=== PATIENT | female | born 1970 | race Caucasian/White ===

== ENCOUNTER → 2017-11-05 | Outpatient (CLI) | payer OTHER | LOC: LAB SHORT 08:34 → LAB 08:34 | PROVIDERS: Student in an Organized Health Care Education/Training Program | DX: Z01.419 Encounter for gynecological examination (general) (routine) without abnormal findings (principal) | CPT/HCPCS: G0145 ==

== ENCOUNTER 2018-07-07 06:05 | Day surgery (SDC) | payer OTHER ==
[~2018-07-07] VITALS: Ht 162.6 cm; Wt 63.8 kg
[~2018-07-07 06:05] MED LIST: DULO30 PO
--- NOTE | 2018-07-07 06:26 | NUR ---
History, Chart, Medications and Allergies reviewed before start of procedure. Lungs clear T/O to Auscultation.
--- NOTE | 2018-07-07 08:44 | NUR ---
07/07/18 0844 Armida Salamanca 0834 REPORT FROM MALGORZATA GRIMM, ASSUMED CARE OF PT.
--- NOTE | 2018-07-07 10:11 | NUR ---
PT ARRIVED TO UNIT AT APROX 1000 FROM PACU. STERI STRIPS X'S 3 W/SCANT SS DRAINAGE PRESENT. DELORIS PAD IN PLACE, DIME SIZE AMT BLOOD PRESENT. PT DENIES PAIN, REPORTS "CRAMPING", DENIES NEED FOR PAIN MEDICATION, HEATING PAD IN PLACE.
--- NOTE | 2018-07-07 17:30 | NUR ---
SHIFT SUMMARY PT POD 0 LAVH. STERI STRIPS WITH SCANT AMT SS DRAINAGE. PT MEDICATED WITH TORADOL ONCE FOR PAIN. TOLERATING REGULAR DIET WITH NO N/V. UP TO CHAIR AND AMBULATING IN ROOM. DE OLIVEIRA PATENT DRAINING CLEAR YELLOW URINE. PLAN IS TO DC DE OLIVEIRA IN AM AND DC HOME WHEN VOIDING.
[2018-07-08 05:47] LABS: BASOPHILS ABSOLUTE AUTO 0.03 K/mm3 (0.00-0.23); BASOPHILS PERCENT AUTO 0 % (0-2); EOSINOPHILS ABSOLUTE AUTO 0.04 K/mm3 (0.00-0.68); EOSINOPHILS PERCENT AUTO 1 % (0-6); Hematocrit 34.7 % (33.0-51.0); Hemoglobin 11.5 g/dL (11.5-16.0); IMMATURE GRAN ABSOLUTE AUTO 0.03 K/mm3 (0.00-0.10); IMMATURE GRAN PERCENT AUTO 0 % (0-1); LYMPHOCYTES ABSOLUTE AUTO 3.03 K/mm3 (0.84-5.20); LYMPHOCYTES PERCENT AUTO 34 % (21-46); MONOCYTES ABSOLUTE AUTO 0.75 K/mm3 (0.16-1.47); MONOCYTES PERCENT AUTO 9 % (4-13); Mean Corpuscular HGB 30.3 pg (26.0-34.0); Mean Corpuscular HGB Conc 33.1 g/dL (31.5-36.5); Mean Corpuscular Volume 92 fL (80-100); Mean Platelet Volume 10.3 fL (9.1-12.4); NEUTROPHILS ABSOLUTE AUTO 4.94 K/mm3 (1.96-9.15); NEUTROPHILS PERCENT AUTO 56 % (41-73); Platelet Count 270 K/mm3 (150-400); RDW Coefficient Variation 12.6 % (11.7-14.2); Red Blood Cell Count 3.79 M/mm3 (3.80-5.20); White Blood Cell Count 8.82 K/mm3 (4.00-11.30)
--- NOTE | 2018-07-08 07:38 | NUR ---
POD 1 S/P LAVH. PT VSS T/O NIGHT. DRESSINGS CDI, SCANT VAGINAL BLEEDING. PAIN MGD W/TORIDOL W/REP RELIEF; PT DECLINED NEED FOR ADDITIONAL PAIN MEDS. PT SHANIQUE PO, NO C/O N/V. REP NO FLATUS YET. DE OLIVEIRA CATH D/C THIS AM, AWAITING VOID. IVF CONT PER ORDERS. IN THIS AM, REP GIVEN TO DAY RN.
[2018-07-08] MEDS ORDERED: IBUP800 PO (07:42)
--- NOTE | 2018-07-08 11:03 | NUR ---
DISCHARGE PT DISCHARGED HOME FROM UNIT AT APROX 1045. PT GIVEN WRITTEN AND VERBAL DISCHARGE INSTRUCTIONS AND VERBALIZED UNDERSTANDING OF THESE INSTRUCTIONS. WRITTEN RX FOR IBUPROFEN GIVEN TO PT. IV REMOVED, PT TOLERATED WELL. DECLINED WHEELCHAIR TO CAR.
== END 2018-07-08 10:47 | disposition home or self-care (01) ==
LOC: ORSCMMR 06:05 → ORD 07:30 → SURS 09:47 → ORSCMMR 07-08 10:47
PROVIDERS: Obstetrics & Gynecology
PROC: 0UT7FZZ Resection of Bilateral Fallopian Tubes, Via Natural or Artificial Opening With Percutaneous Endoscopic Assistance (ICD-10-PCS; principal; 2018-07-07 07:30)
PROC: 0UT9FZZ Resection of Uterus, Via Natural or Artificial Opening With Percutaneous Endoscopic Assistance (ICD-10-PCS; principal; 2018-07-07 07:30)
DX: R10.2 Pelvic and perineal pain (principal); D25.9 Leiomyoma of uterus, unspecified; Q50.5 Embryonic cyst of broad ligament
CPT/HCPCS: 36415; 85025; 88307; C1729; J0690; J1100; J1885; J2250; J2405; J2704; J3010; J7030; J7120

== ENCOUNTER 2020-02-02 07:56 | Day surgery (SDC) | payer OTHER ==
[~2020-02-02] VITALS: Ht 162.6 cm; Wt 57.9 kg
[~2020-02-02 07:56] MED LIST changes: +IBUP800 PO; +Vitamin D2000 UNIT PO
== END 2020-02-02 11:11 | disposition home or self-care (01) ==
LOC: ORSCSDS 07:56
PROVIDERS: Internal Medicine Gastroenterology
PROC: 0DBL8ZX Excision of Transverse Colon, Via Natural or Artificial Opening Endoscopic, Diagnostic (ICD-10-PCS; principal; 2020-02-02 09:15)
DX: Z12.11 Encounter for screening for malignant neoplasm of colon (principal); Z83.71 Family history of colonic polyps; D12.3 Benign neoplasm of transverse colon; J45.909 Unspecified asthma, uncomplicated; Z79.899 Other long term (current) drug therapy
CPT/HCPCS: 88305; J2704; J7120